=== PATIENT | female | born 1940 | race Caucasian/White ===

== ENCOUNTER 2017-10-09 08:00 | Outpatient (CLI) | payer MEDICARE, BC | END 2017-10-09 08:01 | disposition home or self-care (01) | LOC: BICMAMMO 08:00 | PROVIDERS: ATTEND Radiology Diagnostic Radiology | DX: Z12.31 Encounter for screening mammogram for malignant neoplasm of breast (principal) | CPT/HCPCS: 77063 ==

== ENCOUNTER 2018-12-30 11:00 | Outpatient (CLI) | payer MEDICARE, BC | END 2018-12-30 11:01 | disposition home or self-care (01) | LOC: BICMAMMO 11:00 | PROVIDERS: ATTEND Obstetrics & Gynecology | DX: Z12.31 Encounter for screening mammogram for malignant neoplasm of breast (principal) | CPT/HCPCS: 77063; 77067 ==

== ENCOUNTER 2019-03-13 23:06 | Emergency (ER) | payer BC, MEDICARE | END 2019-03-13 23:46 | disposition home or self-care (01) | LOC: ERS 23:06 | DX: T44.7X1A Poisoning by beta-adrenoreceptor antagonists, accidental (unintentional), initial encounter (principal); T46.5X1A Poisoning by other antihypertensive drugs, accidental (unintentional), initial encounter; T48.6X1A Poisoning by antiasthmatics, accidental (unintentional), initial encounter; T46.6X1A Poisoning by antihyperlipidemic and antiarteriosclerotic drugs, accidental (unintentional), initial encounter; E78.5 Hyperlipidemia, unspecified; I10 Essential (primary) hypertension; Z79.899 Other long term (current) drug therapy; Z79.82 Long term (current) use of aspirin | CPT/HCPCS: 99283 ==

== ENCOUNTER 2019-12-24 14:44 | Outpatient (CLI) | payer MEDICARE, BC ==
--- NOTE | 2019-12-24 16:40 | CT ---
EXAM: RIGHT UPPER EXTREMITY CT SCAN WITHOUT IV CONTRAST: 12/24/19 HISTORY: Osteoarthritis. Right shoulder pain for years. Multiplanar CT imaging of the right shoulder is performed. There is very severe narrowing, sclerosis, and subchondral cystic changes of the glenohumeral joint with severe glenohumeral joint arthropathy change. There is superior subluxation of the humeral head relative to the glenoid with complete full thickness chronic erosion of the undersurface of the lateral acromion. Marked arthrosis changes of th e AC joint. There is extensive intra-articular and periarticular ossific foci/calcific foci evidence for multiple intra-articular bodies and severe osteophytosis. There is a distended glenohumeral joint fluid with distention of the subacromial subdeltoid bursa. Complete severe longstanding retracted harris praspinatus and infraspinatus tendon tears with very severe muscle volume loss involving the supraspi natus and infraspinatus muscles with moderate muscle volume loss of the subscapularis muscle. No evid ence for acute fracture. IMPRESSION: Very severe longstanding glenohumeral joint arthropathy change with severe superior subluxation of th e humeral head relative to the glenoid with longstanding severe complete bone erosion of the lateral acromion. Large shoulder joint fluid with distention as well as a large subacromial subdeltoid bursal fluid collection. Very severe supraspinatus and infraspinatus muscle volume loss, evidence for longs tanding complete rotator cuff tears. No acute fracture or dislocation. POS: [facility]
== END 2019-12-24 14:45 | disposition home or self-care (01) ==
LOC: BICCT 14:44
PROVIDERS: ATTEND Orthopaedic Surgery
DX: M19.011 Primary osteoarthritis, right shoulder (principal); M75.121 Complete rotator cuff tear or rupture of right shoulder, not specified as traumatic; M89.9 Disorder of bone, unspecified

== ENCOUNTER 2020-07-08 13:00 | Inpatient (IN) | payer MEDICARE, BC ==
[2020-07-08 10:23] VITALS: BMI 22.6
[2020-07-13] MEDS ORDERED: Ondansetron PF 4 MG/2 ML Vial ONE (10:01)
[2020-07-13] MEDS ORDERED: Glycopyrrolate 0.2 MG/ML 5 ML SYRINGE ONE (10:01)
[2020-07-13] MEDS ORDERED: Rocuronium Bromide 10 MG/ML (10ML VIAL) ONE (10:01)
[2020-07-13] MEDS ORDERED: PROPOFOL 200 MG/20 ML VIAL ONE (10:01)
[2020-07-13] MEDS ORDERED: Ropivacaine 0.2% HCl/PF (40 MG/20 ML VIAL) ONE (10:01)
[2020-07-13] MEDS ORDERED: EPHEDRINE 25 MG/5 ML SYRINGE ONE (10:01)
[2020-07-13] MEDS ORDERED: Lidocaine 1% PF 5 ML VIAL ONE (10:01)
[2020-07-13] MEDS ORDERED: Ropivacaine 0.5% HCl/PF (150 MG/30 ML VIAL) ONE (10:01)
[2020-07-13] MEDS ORDERED: Dexamethasone 20 MG/5 ML VIAL ONE (10:01)
[2020-07-13] MEDS ORDERED: PHENYLEPHRINE-NS 100 MCG/ML 10 ML SYRINGE ONE (10:01)
[2020-07-13] MEDS ORDERED: Midazolam HCl 2 mg/2 ml Vial ONE (10:11)
[2020-07-13] MEDS ORDERED: Fentanyl 100 MCG/2 ML VIAL ONE ×2 (10:12→12:27)
[2020-07-13] MEDS ORDERED: Clindamycin/D5W 900 mg/50 ml Premix Bag ONE (11:12)
[2020-07-13] MEDS ORDERED: Levofloxacin 500 mg/D5W 100 ml Premix Bag ONE (11:13)
[2020-07-13] MEDS ORDERED: Ketorolac Tromethamine 30 MG/ML VIAL IVP PRN (12:10)
[2020-07-13] MEDS ORDERED: HYDROcodone/Acetaminophen 5/325 mg Tablet PO PRN ×2 (12:10)
[2020-07-13] MEDS ORDERED: traMADol HCl 50 MG TAB PO PRN ×2 (12:10)
[2020-07-13] MEDS ORDERED: Ropivacaine 0.2% 550 ML 550 ML NERVE BLCK SCH (12:10)
[2020-07-13] MEDS ORDERED: Ondansetron PF 4 MG/2 ML Vial IVP PRN (12:10)
[2020-07-13] MEDS ORDERED: Promethazine HCl 25 MG/ML VIAL IM PRN ×2 (12:10→13:19)
[2020-07-13] MEDS ORDERED: Acetaminophen 325 MG TAB PO PRN ×2 (12:10→14:49)
[2020-07-13] MEDS ORDERED: Zolpidem Tartrate 5 MG TAB PO PRN (12:10)
[2020-07-13] MEDS ORDERED: Fentanyl 100 MCG/2 ML VIAL IV PRN (12:11)
[2020-07-13] MEDS ORDERED: PACU-Morphine 4MG/ML VIAL SLOW IVP PRN (13:19)
[2020-07-13] MEDS ORDERED: Promethazine HCl 25 MG/ML VIAL SLOW IVP PRN (13:19)
[2020-07-13] MEDS ORDERED: Melatonin 3 MG TAB PO PRN (15:11)
--- NOTE | 2020-07-13 15:22 | RAD ---
XR Shoulder Rt Ltd Survey HISTORY: Status post right reverse shoulder arthroplasty FINDINGS: There are recent postoperative changes of total right shoulder arthroplasty in good position and alig nment. Surgical clips are present.
[2020-07-13] MEDS ORDERED: RISEDRONATE SODIUM 150 MG PO SCH (15:30)
[2020-07-13] MEDS ORDERED: Ketorolac Tromethamine 30 MG/ML VIAL ONE (15:42)
[2020-07-13] MEDS: Clindamycin/D5W 900 MG in Premix Bag 1 BAG IVPB SCH (19:34)
[2020-07-13] MEDS: Trospium 20 MG TAB PO SCH (20:37)
--- NOTE | 2020-07-13 22:24 | EKG ---
Test Reason : PREOP Blood Pressure : / mmHG Vent. Rate : 064 BPM Atrial Rate : 064 BPM P-R Int : 184 ms QRS Dur : 086 ms QT Int : 442 ms P-R-T Axes : 080 020 054 degrees QTc Int : 455 ms Normal sinus rhythm Normal ECG No previous ECGs available Confirmed by Brendan ZIEGLER ([id number]) on 07/13/2020 10:24:06 PM Referred By: NAZ Confirmed By:Brendan ZIEGLER
[2020-07-14] MEDS: Clindamycin/D5W 900 MG in Premix Bag 1 BAG IVPB SCH (02:50)
[2020-07-14 05:21] LABS: #Lymphocytes 1.4 thou/uL (1.20-3.40); #Monocytes 1.3 thou/uL (0.11-0.59); #Neutrophils 6.7 thou/uL (1.40-6.50); %Basophils 0.1 % (0.0-1.0); %Eosinophils 0.2 % (0.0-10.0); %Lymphocytes 14.8 % (21.0-51.0); %Monocytes 13.4 % (0.0-10.0); %Neutrophils 71.6 % (42.0-75.0); Hemoglobin 8.7 g/dL (12.0-16.0); Mean Corpuscular HGB CONC 33.1 g/dL (32.0-36.0); Mean Corpuscular Hemoglobin 31.4 pg (27.0-31.0); Mean Corpuscular Volume 94.9 fL (78.0-98.0); Mean Platelet Volume 7.5 fL (7.4-10.4); Platelet Count 188 thou/uL (130-400); RBC Distribution Width 12.7 % (11.5-14.5); Red Blood Cell (RBC) Count 2.77 mill/uL (4.20-5.40); White Blood Cell (WBC) Count 9.4 thou/uL (4.8-10.8)
[2020-07-14] MEDS: Trospium 20 MG TAB PO SCH (07:56)
[2020-07-14] MEDS ORDERED: Atorvastatin Calcium 10 MG TAB PO SCH (09:00)
[2020-07-14] MEDS ORDERED: Losartan 25 MG TAB PO SCH (09:00)
[2020-07-14] MEDS ORDERED: Atenolol 50 MG TAB PO SCH (09:00)
[2020-07-14] MEDS ORDERED: Amlodipine 10 MG TAB PO SCH (09:00)
[2020-07-14] MEDS ORDERED: FENOFIBRATE 40 MG PO SCH (09:00)
[2020-07-14] MEDS ORDERED: Ubidecarenone 50 MG CAP PO SCH (09:00)
[2020-07-14] MEDS ORDERED: Multivitamin W/ Minerals 1 TAB PO SCH (09:00)
--- NOTE | 2020-07-14 10:44 | OP ---
DATE OF PROCEDURE: 07/13/2020 OPERATION PERFORMED: Right reverse shoulder arthroplasty. PREOPERATIVE DIAGNOSIS: Right rotator cuff arthropathy. POSTOPERATIVE DIAGNOSIS: Right rotator cuff arthropathy. COMPLICATIONS: None. ESTIMATED BLOOD LOSS: 200 mL. SHIPPING RECEIVING MANAGER: Cecilia Vickers PA-C. IMPLANTS: Tornier Reverse Shoulder Arthroplasty size 25-mm baseplate with a +3 lateralized, 39 Standard Glenosphere, Flex 6B stem, tray is a Flex +0 high offset, polyethylene is Flex +6 mm. INDICATIONS: Ms. Butterfield is an 80-year-old female who has had a long history of severe right shoulder rotator cuff arthropathy. She has been indicated for reverse shoulder arthroplasty to restore function and relieve pain. Risks have been reviewed in detail. She has elected to proceed with the operation. Risks do include infection, pain, scarring, bleeding, instability of the shoulder, and others. DESCRIPTION OF PROCEDURE: Ms. Butterfield was identified in the preoperative holding area. Her correct extremity was marked. She was carried to the operating room. She was positioned supine. General anesthesia was induced. A multidisciplinary time-out was performed. The right upper extremity was prepped and draped in sterile fashion. At this point, we began the procedure with a deltopectoral approach to the shoulder. We dissected down through the subcutaneous tissues to the deltopectoral interval. We explored the underlying space. We developed the subdeltoid space. We then identified the margins of the subscapularis muscle. We placed a stay suture in the subscapularis muscle and then performed a tenotomy. At this point, we performed a biceps tenotomy as well, isolating the biceps tendon in its groove. This was sutured down to the inferior tissues. At this point, we were able to dislocate the shoulder. We marked an appropriate resection level. We then resected her humeral head appropriately with a saw. At this point, we retracted the humerus posteriorly and exposed the glenoid. We used a Darrach retractor as well as a Bankart retractor anteriorly. We cleared the labral tissues, these were calcified. There were large osteophytes from the inferior glenoid, which were removed as well. At this point, we obtained a centered position of the glenoid. We inserted a guidewire. We then over-reamed the guidewire. Next, we drilled our central peg. At this point, we prepared our glenoid on the back table and implanted our glenoid baseplate. A 6/5 screw was used centrally. We then placed the superior and inferior screw in the glenoid baseplate. Next, we impacted our Glenosphere and tightened this with our appropriate central screw. At this point, we moved to the humerus. We again exposed the humerus and began preparation. We entered the canal. We then reamed up to a size 7. Next, we broached up to a size 6. The 6 was countersunk slightly, but was very stable. We over-reamed the stem with the calcar planer. We trialed off this. The 0 polyethylene was appropriate for length and stability. The patient had good range of motion and no impingement. We removed our trial components and impacted our final components. We thoroughly irrigated with Betadine lavage. We then closed appropriately in layers. The subscapularis was approximated to the tissues of the humerus using an Ethibond suture. This was followed by layered closure and a sterile dressing was applied. The patient was taken to the recovery room in good condition without complication. Job ID: [id number]
[2020-07-14 12:06] VITALS: BP 125/67; TEMP 97.6
[2020-07-14] MEDS ORDERED: Ezetimibe 10 MG TAB PO SCH (21:00)
[2020-07-15] MEDS ORDERED: Aspirin 81 mg Enteric Coated Tablet PO SCH (09:00)
== END 2020-07-14 12:00 | disposition home or self-care (01) | DRG 483 ==
LOC: SURG A 07-13 09:56
PROVIDERS: ADMIT Orthopaedic Surgery; ATTEND Orthopaedic Surgery
PROC: 0RRJ00Z Replacement of Right Shoulder Joint with Reverse Ball and Socket Synthetic Substitute, Open Approach (ICD-10-PCS; principal; 2020-07-13)
DX: M12.811 Other specific arthropathies, not elsewhere classified, right shoulder (principal); I27.0 Primary pulmonary hypertension; I10 Essential (primary) hypertension; E78.5 Hyperlipidemia, unspecified; I25.10 Atherosclerotic heart disease of native coronary artery without angina pectoris; I34.0 Nonrheumatic mitral (valve) insufficiency; Z79.899 Other long term (current) drug therapy; I25.2 Old myocardial infarction; Z95.5 Presence of coronary angioplasty implant and graft; Z95.2 Presence of prosthetic heart valve
CPT/HCPCS: 36415; 85025; 93005; 93010; A4306; C1713; J1100; J1885; J1956; J2250; J2405; J2704; J2795; J3010; J3490

== ENCOUNTER 2021-03-23 14:45 | Inpatient (IN) | payer MEDICARE, BC ==
[2021-03-23 16:24] VITALS: BMI 23.2
[2021-03-24] MEDS ORDERED: Bupivacaine PF 0.5% 30 ML VIAL ONE (10:50)
[2021-03-24] MEDS ORDERED: Dexamethasone 4 mg/ml Vial ONE (10:50)
[2021-03-24] MEDS ORDERED: Heparin 5,000 UNITS/ML VIAL ONE (10:50)
[2021-03-24] MEDS ORDERED: Protamine Sulfate 50 MG/5 ML VIAL ONE (10:50)
[2021-03-24] MEDS ORDERED: EPINEPHrine 1 MG/ML AMP ONE (10:50)
[2021-03-24] MEDS ORDERED: Clindamycin/D5W 900 mg/50 ml Premix Bag ONE (10:55)
[2021-03-24] MEDS ORDERED: Levofloxacin 500 mg/D5W 100 ml Premix Bag ONE (10:55)
[2021-03-24] MEDS ORDERED: Midazolam HCl 2 mg/2 ml Vial ONE (11:10)
[2021-03-24] MEDS ORDERED: Fentanyl 100 MCG/2 ML VIAL ONE (11:10)
[2021-03-24] MEDS ORDERED: Clindamycin/D5W 600 mg/50 ml Premix Bag ONE (11:14)
[2021-03-24] MEDS ORDERED: Nitroglycerin 50 MG/250 ML BOT 250 ML ONE (12:14)
[2021-03-24] MEDS ORDERED: PROPOFOL 200 MG/20 ML VIAL ONE (12:17)
[2021-03-24] MEDS ORDERED: Rocuronium Bromide 10 MG/ML (10ML VIAL) ONE (12:17)
[2021-03-24] MEDS ORDERED: Ondansetron PF 4 MG/2 ML Vial ONE (12:17)
[2021-03-24] MEDS ORDERED: Lidocaine 1% PF 5 ML VIAL ONE (12:17)
[2021-03-24] MEDS ORDERED: Glycopyrrolate 0.2 MG/ML 5 ML SYRINGE ONE (12:17)
[2021-03-24] MEDS ORDERED: Dexamethasone 20 MG/5 ML VIAL ONE (12:17)
[2021-03-24] MEDS ORDERED: Acetaminophen 325 MG TAB PO PRN (14:31)
[2021-03-24] MEDS ORDERED: traMADol HCl 50 MG TAB PO PRN (14:31)
[2021-03-24] MEDS ORDERED: Ondansetron PF 4 MG/2 ML Vial IVP PRN (14:31)
[2021-03-24] MEDS ORDERED: Non-Formulary Item 1 EACH (Risedronate Sodium [Actonel] 150 MG Tablet) PO SCH (14:31)
[2021-03-24] MEDS ORDERED: Fentanyl 100 MCG/2 ML VIAL SLOW IVP PRN (14:31)
[2021-03-24] MEDS ORDERED: Nitroglycerin 50 MG/250 ML BOT 250 ML IVPB PRN (14:31)
[2021-03-24] MEDS ORDERED: hydrALAZINE 20 MG/ML VIAL SLOW IVP PRN (14:31)
[2021-03-24] MEDS ORDERED: Phenylephrine 40 MG/NS 250 ML 40 MG in Premix Bag 1 BAG IVPB PRN (15:14)
[2021-03-24] MEDS: Sodium Chloride 0.9% 1,000 ML IV SCH (15:23)
[2021-03-24] MEDS ORDERED: ESTRADIOL VAG SCH (15:30)
[2021-03-24] MEDS: Clindamycin/D5W 600 MG in Premix Bag 1 BAG IVPB SCH ×2 (17:02→23:51)
[2021-03-24] MEDS: Trospium 20 MG TAB PO SCH (20:00)
[2021-03-24] MEDS ORDERED: Atorvastatin Calcium 10 MG TAB PO SCH (21:00)
[2021-03-25] MEDS: Clindamycin/D5W 600 MG in Premix Bag 1 BAG IVPB SCH ×2 (05:28→13:00)
[2021-03-25] MEDS ORDERED: cloNIDine 0.1 MG TAB PO PRN (08:00)
[2021-03-25] MEDS: Sodium Chloride 0.9% 1,000 ML IV SCH ×2 (08:51→14:14)
[2021-03-25] MEDS ORDERED: Aspirin 81 mg Enteric Coated Tablet PO SCH (09:00)
[2021-03-25] MEDS ORDERED: Losartan 25 MG TAB PO SCH (09:00)
[2021-03-25] MEDS ORDERED: Atenolol 50 MG TAB PO SCH (09:00)
[2021-03-25] MEDS ORDERED: Amlodipine 10 MG TAB PO SCH (09:00)
[2021-03-25] MEDS ORDERED: Ezetimibe 10 MG TAB PO SCH ×2 (09:00→21:00)
[2021-03-25] MEDS: Trospium 20 MG TAB PO SCH (09:33)
[2021-03-25 09:35] VITALS: BP 146/53
[2021-03-25 14:29] VITALS: TEMP 98.5
[2021-03-26] MEDS ORDERED: Atorvastatin Calcium 10 MG TAB PO SCH (09:00)
== END 2021-03-25 14:55 | disposition home or self-care (01) | DRG 39 ==
LOC: SURG A 03-24 09:36 → CCU 03-24 14:37 → EDSTATUS 03-24 14:45 → CCU 03-25 04:44
PROVIDERS: ADMIT Thoracic Surgery (Cardiothoracic Vascular Surgery); ATTEND Thoracic Surgery (Cardiothoracic Vascular Surgery)
PROC: 03CK0ZZ Extirpation of Matter from Right Internal Carotid Artery, Open Approach (ICD-10-PCS; principal; 2021-03-24)
PROC: 03CH0ZZ Extirpation of Matter from Right Common Carotid Artery, Open Approach (ICD-10-PCS; 2021-03-24)
PROC: 03UH0KZ Supplement Right Common Carotid Artery with Nonautologous Tissue Substitute, Open Approach (ICD-10-PCS; 2021-03-24)
PROC: 03UK0KZ Supplement Right Internal Carotid Artery with Nonautologous Tissue Substitute, Open Approach (ICD-10-PCS; 2021-03-24)
DX: I65.23 Occlusion and stenosis of bilateral carotid arteries (principal); I10 Essential (primary) hypertension; I25.10 Atherosclerotic heart disease of native coronary artery without angina pectoris; Z96.611 Presence of right artificial shoulder joint; Z79.82 Long term (current) use of aspirin; Z79.899 Other long term (current) drug therapy; Z88.1 Allergy status to other antibiotic agents; Z88.5 Allergy status to narcotic agent; Z88.8 Allergy status to other drugs, medicaments and biological substances; Z95.5 Presence of coronary angioplasty implant and graft; Z95.2 Presence of prosthetic heart valve
CPT/HCPCS: 70498; 80048; 81001; 85027; 87086; 87635; 94640; J0171; J1100; J1642; J1644; J1956; J2250; J2405; J2704; J2720; J3010; J3490; J7620; S0020; U0003; U0005